=== PATIENT | female | born 1970 | race African-American/Black ===

== ENCOUNTER 2020-04-14 02:38 | Emergency (ER) | payer OTHER ==
[2020-04-14] MEDS ORDERED: METOCLOPRAMIDE HCL INJ/PF 10 MG/2 ML SDV IV ONE (02:57)
--- NOTE | 2020-04-14 03:02 | ER Document Report ---
ED General - General Chief Complaint: Arm Injury Stated Complaint: SHOULDER INJURY Time Seen by Provider: 04/14/20 02:43 Primary Care Provider: HOME WEAVER DO [ACTIVE STAFF] - Follow up as needed - HPI Notes: Chief complaint: Right shoulder injury HPI: 50-year-old female in excellent general health taking no regular medic ations reports injury to her right shoulder within the last 1 hour. Patient states that she was taking a shower before going to bed when she slipped and struck her right shoulder against the wall of the shower enclosure. She has been unable to move the shoulder since then and has severe pain in the shoulder joint with tingling sensation radiating down the arm. She denies any neck or head injury or any other trauma. EMS arrived at her home and felt that clinically she had a shoulder dislocation. They placed an IV and gave her a total of 100 mcg of fentanyl IV along with 4 mg of Zofran IV. Patient initially complained of 8/10 pain upon arrival here but as I was talking to her she basically fell asleep. Patient indicates that her last full meal was more than 5 hours ago. She ate a small bag of potato chips about 1 hour prior to her injury. Patient reports that she broke her right thumb several years ago and required a surgical procedure under general anesthesia with no complications noted. Patient is a schoolteacher. She denies any use of tobacco, alcohol or illicit drugs. She reports no allergies. - Related Data Allergies/Adverse Reactions: No Known Allergies Allergy (Unverified 04/14/20 03:22) Past Medical History - General Information source: Patient, Emergency Med Personnel - Social History Smoking Status: Never Smoker Frequency of alcohol use: Rare Drug Abuse: None Lives with: Family Family History: Reviewed & Not Pertinent Patient has homicidal ideation: No - Past Medical History Cardiac Medical History: Reports: None Pulmonary Medical History: Reports: None Neurological Medical History: Reports: None Endocrine Medical History: Reports: None Renal/ Medical History: Reports: None Malignancy Medical History: Reports: None GI Medical History: Reports: None Musculoskeletal Medical History: Reports Hx Musculoskeletal Trauma Psychiatric Medical History: Reports: None Traumatic Medical History: Reports: Hx Fractures Past Surgical History: Reports: Hx Orthopedic Surgery Review of Systems - Review of Systems Notes: Constitutional: Negative for fever. HENT: Negative for sore throat. Eyes: Negative for visual changes. Cardiovascular: Negative for chest pain. Respiratory: Negative for shortness of breath. Gastrointestinal: Negative for abdominal pain, vomiting or diarrhea. Genitourinary: Negative for dysuria. Musculoskeletal: As per HPI. Skin: Negative for rash. Neurological: Negative for headaches, weakness or numbness. 10 point ROS negative except as marked above and in HPI. Physical Exam - Vital signs Vitals: Temp 97.4 F 04/14/20 02:38 - Notes Notes: GENERAL: Well-developed well-nourished female approximately stated age appearing in mild pain. SKIN: Good turgor no rashes. HEAD: Normocephalic atraumatic. EYES: PERRLA. EOMI. Conjunctivae and sclerae clear. EARS: CANALS AND TMS CLEAR. NOSE: CLEAR. MOUTH: Moist mucosa. Good dentition. No stridor or edema. No drooling. NECK: Supple. No masses or thyromegaly. No adenopathy. Carotids 2+ without bruits. No JVD. BACK: Symmetrical without tenderness. CHEST: Respirations unlabored. Breath sounds clear and symmetrical. HEART: Regular rhythm. No murmur gallop or rub. ABDOMEN: Soft nontender without masses, organomegaly or rebound. Bowel sounds normally active. No bruits. GENITALIA: Deferred. EXTREMITIES: Patient is holding her right upper extremity above her head and resists movement in all planes secondary to pain. Distal neurovascular exam is normal. No edema. No calf tenderness. Cap refill less than 1.5 seconds. Dorsalis pedis and posterior tibial pulses 3+ and symmetrical. NEUROLOGICAL: GCS 15. Alert and oriented x3. Fluent speech. Cranial nerves II through XII intact. Sensorimotor and cerebellar normal. Normal tone. PSYCHIATRIC: Appropriate affect. Course - Re-evaluation Re-evalutation: 04/14/20 03:04 Based on the position of the patient's upper extremity I think she probably has a luxatio erecti type dislocation of the right shoulder. We will keep her n.p.o. and obtain plain films. 04/14/20 03:57 Shoulder dislocation was confirmed radiographically. The dislocation was reduced under procedural sedation without complications. Shoulder immobilizer has been applied. Post reduction x-ray has been requested. 04/14/20 04:02 Patient has had placement of a shoulder immobilizer. Postreduction x-ray shows good reduction of the right shoulder joint with no fracture appreciated. Anticipate discharge the patient following full recovery from sedation. - Vital Signs Vital signs: Temp Pulse Resp BP Pulse Ox 97.4 F 71 14 126/59 H 100 04/14/20 02:44 04/14/20 03:56 04/14/20 03:56 04/14/20 03:56 04/14/20 03:56 - Diagnostic Test Radiology reviewed: Image reviewed Radiology results interpreted by me: 04/14/20 03:56 Right shoulder x-ray reviewed by me demonstrating anterior dislocation with no associated fracture. Procedures - Conscious Sedation Conscious sedation Time started: 03:50 Time completed: 03:55 Consent obtained: Yes Indication: Dislocation right shoulder Last meal: Greater than 4 hours Emergent conditions applies.: E. - ASA Classification Normal healthy pt.: P1. - ASA Classification Airway Evaluation: Normal anatomy, Obese Mallampati Classification: Class 2 Used during procedure: Suction available, IV access obtained, Pulse ox on pt., chemist physical on pt. Medications administered: Etomidate Reversal agents: None I personally performed/intraservice time: Sedation, Procedure, 30 min or less Complications: No - Immobilization Right Shoulder Pre-Proc Neuro Vasc Exam: Normal Immobilizer type: Shoulder immobilizer Performed by: PCT Post-Proc Neuro Vasc Exam: Normal Alignment checked and good: Yes - Joint Reduction/Fracture Care Right Shoulder Time completed: 03:53 Consent obtained: Yes Conscious sedation: Yes Pre-procedure NV exam: Yes Manipulation comment: Traction/countertraction Post-procedure NV exam: Yes Post-reduction x-ray: Joint reduced Reduction attempts: 1 Complications: No Discharge - Discharge Clinical Impression: Anterior dislocation of right shoulder Qualifiers: Encounter type: initial encounter Qualified Code(s): S43.014A - Anterior dislocation of right humerus, initial encounter Condition: Stable Disposition: HOME, SELF-CARE Instructions: Oral Narcotic Medication ([facility]), Shoulder Dislocation ([facility]), Sling as Treatment ([facility]) Additional Instructions: Apply ice packs to shoulder as needed for pain. You may take Tylenol or [id number] ibuprofen initially for pain. You have been supplied a small amount of narcotic medication which may be used as needed for supplementary pain relief. Do not drive until you have been reevaluated by orthopedics. Do not remove the shoulder immobilizer until you are evaluated by an teacher selection specialist. We will provide the name of the on-call orthopedic doctor and you should schedule appointment within the next 3 to 5 days for reevaluation in the office. Referrals: HOME [facility]ER, [ACTIVE STAFF] - Follow up as needed
[2020-04-14] MEDS ORDERED: MORPHINE SULFATE 10 MG/ML INJ IV ONE (03:10)
[2020-04-14] MEDS ORDERED: ETOMIDATE INJ/PF 20 MG/10 ML SDV IV ONE (03:10)
--- NOTE | 2020-04-14 03:28 | RADIOLOGY REPORT (SQ) ---
EXAM DESCRIPTION: XR SHOULDER 2 OR MORE VIEWS COMPLETED DATE/TME: 04/14/2020 02:55 CLINICAL HISTORY: 50 years, Female, trauma COMPARISON: None. NUMBER OF VIEWS: 1 TECHNIQUE: Single view right shoulder LIMITATIONS: None. FINDINGS: Inferior dislocation of the humeral head relative to the bony glenoid. No discrete fracture. The acromioclavicular joint is intact IMPRESSION: Inferior humerus dislocation copyright 2010 [employer]- All Rights Reserved
[2020-04-14] MEDS ORDERED: HYDROCODONE/ACETAMINOPHEN 5-325 MG (6 TAB/ER DISP) PO PRN (04:07)
--- NOTE | 2020-04-14 04:21 | RADIOLOGY REPORT (SQ) ---
EXAM DESCRIPTION: XR SHOULDER 2 OR MORE VIEWS COMPLETED DATE/TME: 04/14/2020 03:56 CLINICAL HISTORY: 50 years, Female, post-reduction COMPARISON: Right shoulder x-ray 04/14/2020 NUMBER OF VIEWS: 2 TECHNIQUE: 2 views right shoulder LIMITATIONS: None. FINDINGS: Interval reduction of the previously noted dislocation. No acute fracture. Mild degenerative changes. IMPRESSION: Interval reduction with no acute fracture copyright 2010 [employer] - [employer]- All Rights Reserved
[2020-04-14 05:21] VITALS: BP 118/85
== END 2020-04-14 05:22 | disposition home or self-care (01) ==
LOC: ER 02:38
PROC: 0RSJXZZ Reposition Right Shoulder Joint, External Approach (ICD-10-PCS; principal; 2020-04-14)
DX: S43.014A Anterior dislocation of right humerus, initial encounter (principal); M25.511 Pain in right shoulder; R20.0 Anesthesia of skin; W01.0XXA Fall on same level from slipping, tripping and stumbling without subsequent striking against object, initial encounter
CPT/HCPCS: 99284; 99152; 96374; 96375; 73030; 23650; J2765; J2270; J3490